=== PATIENT | male | born 1950 | race Caucasian/White ===

== ENCOUNTER 2017-05-18 17:52 | Emergency (ER) | payer MEDICARE, BC ==
[2017-05-18] MEDS ORDERED: Adenosine 6 MG/2 ML SDV IVPUSH ONE ×2 (17:58→18:02)
[2017-05-18] MEDS ORDERED: Adenosine 6 MG/2 ML SDV ONE (17:59)
[2017-05-18] MEDS: Sodium Chloride 0.9% 10 ML Syringe FLUSH PRN ×2 (18:00→18:03)
[2017-05-18] MEDS ORDERED: Sodium Chloride 0.9% 1,000 ML IV SCH (18:00)
--- NOTE | 2017-05-18 18:06 | EDM.PDOC ---
ED HPI GENERAL MEDICAL PROBLEM - General Chief Complaint: Cardiovascular Problem Stated Complaint: CHEST PAIN Time Seen by Provider: 05/18/17 17:55 Source of Information: Reports: Patient, Old Records History Limitations: Reports: No Limitations - History of Present Illness INITIAL COMMENTS - FREE TEXT/NARRATIVE: 67 yo male was working on his lawn and developed rapid HR associated with some chest pain and SOB. Has a PHx of tachycardia, but does not know what kind it was. Last episode about a year ago. Is on a baby aspirin daily. Onset: Today Onset Date: 05/18/17 Onset Time: 17:35 Duration: Minutes: Location: Reports: Chest Quality: Reports: Ache Severity: Moderate Improves with: Reports: Rest Worsens with: Reports: Movement (exertion) Context: Reports: Other (PHx of SVT) Associated Symptoms: Reports: Shortness of Breath Treatments [employer]: Reports: Other (see below) (none) Midsternal chest Pain Score (Numeric/FACES): 6 - Related Data Allergies Allergy/AdvReac Type Severity Reaction Status Date / Time No Known Allergies Allergy Verified 05/18/17 18:15 Home Meds: Home Meds Levothyroxine 125 mcg PO DAILY 05/04/16 [History] Metoprolol Tartrate 50 mg PO BID 05/04/16 [History] Omeprazole 1 tab PO DAILY 05/04/16 [History] Rosuvastatin [Crestor] 20 mg PO BEDTIME 05/04/16 [History] Aspirin [Halfprin] 81 mg PO DAILY 05/05/16 [History] Cholecalciferol (Vitamin D3) [Vitamin D3] 1,000 unit PO DAILY 05/05/16 [History] Lisinopril 40 mg PO DAILY 05/05/16 [History] Chlorthalidone 25 mg PO DAILY #30 tablet 05/06/16 [Rx] Past Medical History HEENT History: Reports: None Cardiovascular History: Reports: Bypass (3 vessel CABG 2006 at [facility]), CAD, Hypertension Gastrointestinal History: Reports: Gastritis Genitourinary History: Reports: None Neurological History: Reports: Seizure Endocrine/Metabolic History: Reports: Hypothyroidism - Past Surgical History HEENT Surgical History: Reports: Other (See Below) Cardiovascular Surgical History: Reports: Coronary Artery Bypass GI Surgical History: Reports: Colonoscopy, Other (See Below) Neurological Surgical History: Reports: Laminectomy, Lumbar Spine Musculoskeletal Surgical History: Reports: Arthroscopic Knee, Hip Replacement Social & Family History - Family History Family Medical History: Noncontributory Cardiac: Reports: [place] GI: Reports: Colon Polyps Musculoskeletal: Reports: Osteoarthritis Immunologic: Reports: Immunosuppression, Other (See Below) Other Immunologic Family History: CHRONIC LEUK Oncologic: Reports: Leukemia Other Oncologic Family History: MOTHER WITH LEUKEMIA - Tobacco Use Smoking Status *Q: Never Smoker Second Hand Smoke Exposure: No - Recreational Drug Use Recreational Drug Use: No ED ROS GENERAL - Review of Systems Review Of Systems: See Below Constitutional: Reports: No Symptoms HEENT: Reports: No Symptoms Respiratory: Reports: Shortness of Breath Cardiovascular: Reports: Chest Pain Endocrine: Reports: No Symptoms GI/Abdominal: Reports: No Symptoms : Reports: No Symptoms Musculoskeletal: Reports: No Symptoms Skin: Reports: No Symptoms Neurological: Reports: No Symptoms ED EXAM, GENERAL - Physical Exam Exam: See Below Exam Limited By: No Limitations General Appearance: Alert, WD/WN, No Apparent Distress Eye Exam: Bilateral Eye: Normal Inspection Ears: Normal External Exam, Normal Canal, Hearing Grossly Normal Ear Exam: Right Ear: Erythema, Bilateral Ear: Auricle Normal, Canal Normal Nose: Normal Inspection, Normal Mucosa, No Blood Throat/Mouth: Normal Inspection, Normal Lips, Normal Teeth, Normal Oropharynx, Normal Voice, No Airway Compromise Head: Atraumatic, Normocephalic Neck: Normal Inspection, Supple Respiratory/Chest: No Respiratory Distress, Lungs Clear, Normal Breath Sounds, No Accessory Muscle Use Cardiovascular: No Edema, Tachycardia GI/Abdominal: Normal Bowel Sounds, Soft, Non-Tender, No Distention Back Exam: Normal Inspection. No: CVA Tenderness (R), CVA Tenderness (L) Extremities: Normal Inspection, Normal Range of Motion, Non-Tender Neurological: Alert, Oriented, CN II-XII Intact, Normal Cognition, No Motor/ Sensory Deficits Psychiatric: Normal Affect, Normal Mood Skin Exam: Warm, Dry, Intact, Normal Color, No Rash Lymphatic: No Adenopathy EKG INTERPRETATION EKG Date: 05/18/17 Time: 17:50 Rhythm: Other (SVT) Rate (Beats/Min): 180 [place]: Normal P-Wave: Present QRS: Normal ST-T: Normal QT: Normal Comparison: Change From Previous EKG (Rate increased from 60/min.) Course - Vital Signs Text/Narrative:: After conversion rate at 75/min. Some ST depression noted after conversion in anterior/lateral leads. Last Recorded V/S: Last Vital Signs Temp 36.6 C 05/18/17 17:52 Pulse 180 H 05/18/17 17:52 Resp 18 05/18/17 17:52 BP 154/105 H 05/18/17 17:52 Pulse Ox 99 05/18/17 17:52 Chest pain, SOB resolved after conversion to NSR. - Orders/Labs/Meds Orders: Active Orders 24 hr Category Date Time Status Cardiac Monitoring [RC] .As Directed Care 05/18/17 17:53 Active EKG Documentation Completion [RC] ASDIRECTED Care 05/18/17 17:53 Active EKG 12 Lead [EK] Routine Ther 05/18/17 17:53 Ordered Labs: Laboratory Tests 05/18/17 Range/Units 16:00 Troponin I 0.02 (0.02-0.06) NG/ML Meds: Medications Discontinued Medications Generic Name Dose Route Start Last Admin Trade Name Freq PRN Reason Stop Dose Admin Adenosine 6 mg 05/18/17 17:58 Adenocard IVPUSH 05/18/17 17:59 NOW ONE Adenosine Confirm 05/18/17 17:59 Adenocard Administered 05/18/17 18:00 Dose 6 mg .ROUTE .STK-MED ONE Adenosine 12 mg 05/18/17 18:02 Adenocard IVPUSH 05/18/17 18:03 NOW ONE Sodium Chloride 1,000 mls @ 125 mls/hr 05/18/17 18:00 Normal Saline IV ASDIRECTED MEE Departure - Departure Time of Disposition: 18:41 Disposition: Home, Self-Care 01 Condition: Good Clinical Impression: SVT (supraventricular tachycardia) - My Orders Last 24 Hours: My Active Orders 05/18/17 17:53 Cardiac Monitoring [RC] .As Directed EKG Documentation Completion [RC] ASDIRECTED EKG 12 Lead [EK] Routine - Assessment/Plan Last 24 Hours: My Active Orders 05/18/17 17:53 Cardiac Monitoring [RC] .As Directed EKG Documentation Completion [RC] ASDIRECTED EKG 12 Lead [EK] Routine
[2017-05-18 20:55] VITALS: BP 137/93
== END 2017-05-18 18:52 | disposition home or self-care (01) ==
LOC: FB.ED 17:52
DX: I47.1 Supraventricular tachycardia (principal); I25.10 Atherosclerotic heart disease of native coronary artery without angina pectoris; E03.9 Hypothyroidism, unspecified; Z98.890 Other specified postprocedural states; Z79.899 Other long term (current) drug therapy; Z95.1 Presence of aortocoronary bypass graft; Z79.82 Long term (current) use of aspirin
CPT/HCPCS: 36415; 84484; 93005; 96374; 99285; J0153; J7050; 99284

== ENCOUNTER 2019-01-29 17:17 | Emergency (ER) | payer MEDICARE, BC ==
--- NOTE | 2019-01-29 17:44 | EDM.PDOC ---
ED HPI GENERAL MEDICAL PROBLEM - General Chief Complaint: Genitourinary Problem Stated Complaint: FEELLING ILL, RED URINE Time Seen by Provider: 01/29/19 17:17 Source of Information: Reports: Patient, Other (Nurse) History Limitations: Reports: No Limitations - History of Present Illness INITIAL COMMENTS - FREE TEXT/NARRATIVE: 68 y.o.w.m S/P biological valve replacement at [facility], on Coumadin, S/P CABG 3 vessels, h/o HTN, came to the ED due blood in his urine, starting today. No pain. No trauma, no N/V/D. No H/O bladder infection, CA or AV malformations. No other acute medical issues, pt fells in his usual state of health. BP 197/ 79 RR 18 Pulse ox 99% on RA, Temp 36.8 Pulse 74. Pt did not take his home meds yet. Onset Date: 01/29/19 Onset Time: 06:00 Duration: Hour(s): Location: Reports: Pelvis Quality: Reports: Other Severity: Mild Improves with: Reports: None Worsens with: Reports: None Context: Reports: Other (is on coumadine) Associated Symptoms: Reports: No Other Symptoms Bilateral Lower Abdominal Pain Score (Numeric/FACES): 3 - Related Data Allergies Allergy/AdvReac Type Severity Reaction Status Date / Time No Known Allergies Allergy Verified 01/29/19 17:28 Home Meds: Home Meds Levothyroxine 125 mcg PO DAILY 05/04/16 [History] Metoprolol Tartrate 50 mg PO BID 05/04/16 [History] Omeprazole 1 tab PO DAILY 05/04/16 [History] Rosuvastatin [Crestor] 20 mg PO BEDTIME 05/04/16 [History] Aspirin [Halfprin] 81 mg PO DAILY 05/05/16 [History] Cholecalciferol (Vitamin D3) [Vitamin D3] 1,000 unit PO DAILY 05/05/16 [History] Lisinopril 40 mg PO DAILY 05/05/16 [History] Past Medical History HEENT History: Reports: None Cardiovascular History: Reports: Bypass (3 vessel CABG 2006 at [facility]), CAD, Hypertension Gastrointestinal History: Reports: Gastritis Genitourinary History: Reports: None Musculoskeletal History: Reports: Arthritis, Back Pain, Chronic Neurological History: Reports: Seizure Endocrine/Metabolic History: Reports: Hypothyroidism Oncologic (Cancer) History: Reports: Basal Cell Carcinoma - Infectious Disease History Infectious Disease History: Reports: Chicken Pox - Past Surgical History HEENT Surgical History: Reports: Other (See Below) Cardiovascular Surgical History: Reports: Coronary Artery Bypass GI Surgical History: Reports: Colonoscopy, Other (See Below) Neurological Surgical History: Reports: Laminectomy, Lumbar Spine Musculoskeletal Surgical History: Reports: Arthroscopic Knee, Hip Replacement Social & Family History - Family History Family Medical History: Noncontributory Cardiac: Reports: [place] GI: Reports: Colon Polyps Musculoskeletal: Reports: Osteoarthritis Immunologic: Reports: Immunosuppression, Other (See Below) Other Immunologic Family History: CHRONIC LEUK Oncologic: Reports: Leukemia Other Oncologic Family History: MOTHER WITH LEUKEMIA - Caffeine Use Caffeine Use: Reports: Coffee, Soda ED ROS GENERAL - Review of Systems Review Of Systems: See Below Constitutional: Reports: No Symptoms HEENT: Reports: No Symptoms Respiratory: Reports: No Symptoms Cardiovascular: Reports: No Symptoms Endocrine: Reports: No Symptoms GI/Abdominal: Reports: No Symptoms : Reports: Hematuria Musculoskeletal: Reports: No Symptoms Skin: Reports: No Symptoms Neurological: Reports: No Symptoms Psychiatric: Reports: No Symptoms Hematologic/Lymphatic: Reports: No Symptoms Immunologic: Reports: No Symptoms ED EXAM, RENAL/ - Physical Exam Exam: See Below Exam Limited By: No Limitations General Appearance: Alert, WD/WN, Mild Distress Eye Exam: Bilateral Eye: Normal Inspection Ears: Normal External Exam Nose: Normal Inspection Throat/Mouth: Normal Inspection, Normal Lips, Normal Voice, No Airway Compromise Head: Atraumatic, Normocephalic Neck: Normal Inspection, Supple, Non-Tender, Full Range of Motion Respiratory/Chest: No Respiratory Distress, Lungs Clear, Normal Breath Sounds, No Accessory Muscle Use, Chest Non-Tender Cardiovascular: Normal Peripheral Pulses, Regular Rate, Rhythm, No Edema, No Gallop GI/Abdominal: Normal Bowel Sounds, Soft, Non-Tender (Male) Exam: No Hernia, Other (painless hematuria) Rectal (Males) Exam: Deferred Back Exam: Normal Inspection, Full Range of Motion Extremities: Normal Inspection, Normal Range of Motion, Non-Tender Neurological: Alert, Oriented, CN II-XII Intact, Normal Cognition, Normal Gait Psychiatric: Normal Affect, Normal Mood Skin Exam: Warm, Dry, Intact, Normal Color, No Rash Lymphatic: No Adenopathy Course - Vital Signs Text/Narrative:: 68 y.o.w.m S/P biological valve replacement at [facility], on Coumadin, S/P CABG 3 vessels, h/o HTN, came to the ED due blood in his urine, starting today. No pain. No trauma, no N/V/D. No H/O bladder infection, CA or AV malformations. No other acute medical issues, pt fells in his usual state of health. BP 197/ 79 RR 18 Pulse ox 99% on RA, Temp 36.8 Pulse 74. Pt did not take his home meds yet. PE: WNWD WM in NAD with painless hematuria. Bladder scan: 0 cc post void Imaging: CT abd/pelvis: 2 mm left renal calculus, vs vascular calcification, Cholelithiasis, ground glas opacities both lungs, 3 mm nodule right lower lung. Impression: painless hematuria, S/P Heart valve replacement 8.03 pm Consultation: Dr. Mcgee, Urologist, [facility]: Drink lot of water. Not necessary to reverse the INR or stop the Coumadin at this time. Reexam: Pt was doing fine in the ed, his BP was elevated to 162. Pt will take his evening med as soon as he is home. He has a BP Machine at home. Plan: D/C with instructions Last Recorded V/S: Last Vital Signs Temp 36.6 C 01/29/19 17:20 Pulse 73 01/29/19 20:26 Resp 20 01/29/19 20:26 BP 162/101 H 01/29/19 20:26 Pulse Ox 100 01/29/19 20:26 - Orders/Labs/Meds Orders: Active Orders 24 hr Category Date Time Status Abdomen Pelvis wo Cont [CT] Stat Exams 01/29/19 18:15 Taken CULTURE URINE [RM] Stat Lab 01/29/19 17:45 Received Labs: Laboratory Tests 01/29/19 01/29/19 01/29/19 Range/Units 17:30 17:45 17:45 WBC 7.3 (4.5-12.0) X10-3/uL RBC 5.03 (4.30-5.75) x10(6)uL Hgb 13.8 (13.5-17.8) g/dL Hct 41.7 (30.0-51.3) % MCV 82.9 (80-96) fL MCH 27.4 L (27.7-33.6) pg MCHC 33.1 (32.2-35.4) g/dL RDW 14.6 (11.5-15.5) % Plt Count 202 (125-369) X10(3)uL MPV 9.5 (7.4-10.4) fL Neut % (Auto) 56.1 (46-82) % Lymph % (Auto) 25.4 (13-37) % [place] % (Auto) 13.6 H (4-12) % Eos % (Auto) 4 (1.0-5.0) % Baso % (Auto) 1 (0-2) % Neut # (Auto) 4.1 (1.6-8.3) # Lymph # (Auto) 1.8 (0.6-5.0) # [place] # (Auto) 1.0 (0.0-1.3) # Eos # (Auto) 0.3 (0.0-0.8) # Baso # (Auto) 0.1 (0.0-0.2) # PT 21.9 H (8.7-11.1) INR 2.28 H (0.89-1.13) Sodium (135-145) mmol/L Potassium (3.5-5.3) mmol/L Chloride (100-110) mmol/L Carbon Dioxide (21-32) mmol/L BUN (7-18) mg/dL Creatinine (0.70-1.30) mg/dL Est Cr Clr Drug Dosing mL/min Estimated GFR (MDRD) (>60) BUN/Creatinine Ratio (9-20) Glucose (80-116) mg/dL Calcium (8.6-10.2) mg/dL Urine Color Red (YELLOW) Urine Appearance Cloudy (CLEAR) Urine pH 5.0 (5.0-6.5) Ur Specific [place] 1.020 (1.010-1.025) Urine Protein 100 H (NEGATIVE) mg/dL Urine Glucose (UA) Normal (NORMAL) mg/dL Urine Ketones Negative (NEGATIVE) mg/dL Urine Occult Blood Large H (NEGATIVE) Urine Nitrite Negative (NEGATIVE) Urine Bilirubin Negative (NEGATIVE) Urine Urobilinogen Normal (NEGATIVE) mg/dL Ur Leukocyte Esterase Moderate H (NEGATIVE) Urine RBC Packed H (0-5) 04/28/19 Range/Units 17:45 WBC (4.5-12.0) X10-3/uL RBC (4.30-5.75) x10(6)uL Hgb (13.5-17.8) g/dL Hct (30.0-51.3) % MCV (80-96) fL MCH (27.7-33.6) pg MCHC (32.2-35.4) g/dL RDW (11.5-15.5) % Plt Count (125-369) X10(3)uL MPV (7.4-10.4) fL Neut % (Auto) (46-82) % Lymph % (Auto) (13-37) % [place] % (Auto) (4-12) % Eos % (Auto) (1.0-5.0) % Baso % (Auto) (0-2) % Neut # (Auto) (1.6-8.3) # Lymph # (Auto) (0.6-5.0) # [place] # (Auto) (0.0-1.3) # Eos # (Auto) (0.0-0.8) # Baso # (Auto) (0.0-0.2) # PT (8.7-11.1) INR (0.89-1.13) Sodium 141 (135-145) mmol/L Potassium 3.6 (3.5-5.3) mmol/L Chloride 104 (100-110) mmol/L Carbon Dioxide 26 (21-32) mmol/L BUN 22 H (7-18) mg/dL Creatinine 1.1 (0.70-1.30) mg/dL Est Cr Clr Drug Dosing 77.89 mL/min Estimated GFR (MDRD) > 60 (>60) BUN/Creatinine Ratio 20.0 (9-20) Glucose 117 H (80-116) mg/dL Calcium 8.7 (8.6-10.2) mg/dL Urine Color (YELLOW) Urine Appearance (CLEAR) Urine pH (5.0-6.5) Ur Specific [place] (1.010-1.025) Urine Protein (NEGATIVE) mg/dL Urine Glucose (UA) (NORMAL) mg/dL Urine Ketones (NEGATIVE) mg/dL Urine Occult Blood (NEGATIVE) Urine Nitrite (NEGATIVE) Urine Bilirubin (NEGATIVE) Urine Urobilinogen (NEGATIVE) mg/dL Ur Leukocyte Esterase (NEGATIVE) Urine RBC (0-5) Departure - Departure Time of Disposition: 20:16 Disposition: Home, Self-Care 01 Condition: Good Clinical Impression: Painless hematuria - Discharge Information Instructions: Hematuria, Adult Referrals: Dakota Clinton MD [Primary Care Provider] - Forms: ED Department Discharge Additional Instructions: Please increase water intake. Continue your current meds, please f/u with your PMD or Urologist this week, please come back if your symptoms get worse acutely or you have symptoms or urinary retention/can not void, fever, chills. - My Orders Last 24 Hours: My Active Orders 01/29/19 17:45 CULTURE URINE [RM] Stat 01/29/19 18:15 Abdomen Pelvis wo Cont [CT] Stat - Assessment/Plan Last 24 Hours: My Active Orders 01/29/19 17:45 CULTURE URINE [RM] Stat 01/29/19 18:15 Abdomen Pelvis wo Cont [CT] Stat
[2019-01-29 20:34] VITALS: BP 162/101
== END 2019-01-29 20:26 | disposition home or self-care (01) ==
LOC: FB.ED 17:17
DX: R31.9 Hematuria, unspecified (principal); Z95.4 Presence of other heart-valve replacement; I10 Essential (primary) hypertension; I25.10 Atherosclerotic heart disease of native coronary artery without angina pectoris; E03.9 Hypothyroidism, unspecified; Z79.899 Other long term (current) drug therapy; Z85.828 Personal history of other malignant neoplasm of skin
CPT/HCPCS: 36415; 51798; 74176; 80048; 81001; 85025; 85610; 87086; 99283-25